=== PATIENT | male | born 1975 | race Hispanic/Latino ===

== ENCOUNTER 2023-01-16 14:15 | Emergency (ER) | payer SELFPAY ==
--- OUTSIDE RECORDS SUMMARY | 2023-01-16 14:18 | XMS REPORT | Continuity of Care Document ---
:1975 Author Organization [facility] t Address [address] [facility] [address] [place] [id number] Care Team Providers Name Role Phone Unavailable Unavailable Unavailable Problems This patient has no known problems. Allergies, Adverse Reactions, Alerts This patient has no known allergies or adverse reactions. Medications This patient has no known medications. Procedures This patient has no known procedures. Encounters Start End Encounter Admission Attending Care Care Encounter Source Date/Time Date/Time Type Type Clinicians Facility Department ID 2023-01-13 2023-01-13 Outpatient [facility] [id number] Robert 15:32:50 15:32:50 [id number] F Shyam 2022-08-24 2022-08-24 Outpatient [facility] [id number] Robert 10:46:46 10:46:46 [id number] F Shyam Results This patient has no known results.
[2023-01-16] MEDS ORDERED: FENTANYL CITR 100 MCG/2 ML ONE (14:42)
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
[2023-01-16] MEDS ORDERED: TDAP (DIPHTH,PERTUSS(ACELL),TET VAC) 0.5 ML VIAL IMVAC ONE (15:11)
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
[2023-01-16] MEDS ORDERED: DOXYCYCLINE 100 MG CAP PO ONE (16:11)
[2023-01-16 16:20] VITALS: BP 148/96; O2SAT 95
[2023-01-18] MEDS ORDERED: KETOROLAC 30 MG/ML INJ ONE (12:17)
[2023-01-18] MEDS ORDERED: TDAP (DIPHTH,PERTUSS(ACELL),TET VAC) 0.5 ML VIAL IMVAC ONE (12:17)
== END 2023-01-16 16:14 | disposition home or self-care (01) ==
LOC: ER 14:15
PROC: 0HQ1XZZ Repair Face Skin, External Approach (ICD-10-PCS; principal; 2023-01-16)
DX: S03.2XXA Dislocation of tooth, initial encounter (principal); S01.81XA Laceration without foreign body of other part of head, initial encounter
CPT/HCPCS: 70450; 70486; 76377; 96372; 96374; 99284; J3010